=== PATIENT | male | born 1970 | race Caucasian/White ===

== ENCOUNTER → 2021-06-11 16:24 | Outpatient (CLI) | payer OTHER, SELFPAY ==
--- NOTE | 2021-06-11 | DI.RAD.S_ITS ---
PROCEDURE: XR CHEST 2V INDICATIONS: AFIB TECHNIQUE: 2 views of the chest were acquired. COMPARISON: None. FINDINGS: Surgical changes and devices: None. Lungs and pleura: No consolidation. Prominent pulmonary vasculature markings. No pleural effusions or pneumothorax. Mediastinum: Mediastinal contours are normal. Heart size is within normal limits. Bones and chest wall: No suspicious bony abnormalities. Soft tissues appear unremarkable. IMPRESSION: Question pulmonary vasculature engorgement. Dictated by: Trenton Gonzales M.D. on 06/11/2021 at 16:10 Approved by: Trenton Gonzales M.D. on 06/11/2021 at 16:11
== END ==
PROVIDERS: Referring Provider Student in an Organized Health Care Education/Training Program; Visit Provider Student in an Organized Health Care Education/Training Program
DX: I48.91 Unspecified atrial fibrillation (principal)
CPT/HCPCS: 71046

== ENCOUNTER → 2021-07-25 14:47 | Outpatient (CLI) | payer OTHER, SELFPAY ==
--- NOTE | 2021-07-25 14:50 | DI.ECHO.S_ITS ---
[facility] +---------+ : : [address] : [place] : : : : [id number] : : : : Phone: [phone]+ Echocardiogram Report + + :Name: LIEN ALVAREZ Study Date: 07/25/2021 Height: 71 in : :[facility] ReadingLocation: Weight: 312 lb : : Gender: Male BSA: 2.5 m2 : :: 1970 Age: 50 yrs BP: 144/92 mmHg: :Reason For Study: Atrial fibrillation : :Ordering Physician: ZACHARIAH, : :ARLETH Performed By: Justin Mandujano : :Referring: ARLETH SONI : + + Interpretation Summary There is mild concentric left ventricular hypertrophy. The ejection fraction is estimated to be 55-60%. Diastolic function could not be accurately assessed due to atrial fibrillation. The right ventricle is normal in size and function. Both atria are mildly dilated. No significant valvular abnormalities. Unable to estimate PASP. Procedure: A two-dimensional transthoracic echocardiogram with color flow and Doppler was performed. The study quality was technically adequate. There is no prior echocardiogram noted for this patient. A contrast injection of Definity was performed to improve assessment of LV function. Left Ventricle: The left ventricle is normal in size. There is mild concentric left ventricular hypertrophy. Left ventricular systolic function is normal. The ejection fraction is estimated to be 55-60%. There are no focal wall motion abnormalities. Diastolic function could not be accurately assessed due to atrial fibrillation. Right Ventricle: The right ventricle is normal in size and function. Atria: Both atria are mildly dilated. The interatrial septum grossly appears intact with no obvious evidence for an atrial septal defect. Mitral Valve: The mitral valve is normal in structure and function. There is no mitral regurgitation noted. Aortic Valve: The aortic valve opens well. There is no aortic valve stenosis. No aortic regurgitation is present. Tricuspid Valve: The tricuspid valve is normal. No tricuspid regurgitation. Pulmonary artery pressures cannot be estimated because of the lack of a measurable TR jet velocity. Pulmonic Valve: The pulmonic valve is not well seen, but is grossly normal. There is mild pulmonic regurgitation. Great Vessels: The aortic root is normal size. The dimensions of the ascending aorta are normal. The IVC is of normal diameter and collapses greater than 50% with a sniff. This suggests a low right atrial pressure of 3 mm Hg. Pericardium/ Pleura There is no pericardial effusion. There is no pleural effusion. MMode/2D Measurements & Calculations LVIDd: 5.1 cm LVOT diam: 2.6 cm LVIDs: 3.7 cm Ao root diam: 4.0 cm FS: 28.2 % asc Aorta Diam: 3.7 cm IVSd: 1.3 cm LVPWd: 1.2 cm LV cherry. diameter/BSA (cm/m^2): 2.0 LV sys. diameter/BSA (cm/m^2): 1.5 LA dimension: 3.5 cm RA long axis: 5.6 cm LA A2 area: 26.9 cm2 LA A4 area: 26.1 cm2 LA length (vol): 6.2 cm LA vol: 95.7 ml LA vol index: 37.5 ml/m2 LVLs ap4: 6.9 cm TAPSE_phl: 2.1 cm Doppler Measurements & Calculations Ao V2 max: 108.0 cm/sec LVOT Max Ludwin: 79.0 cm/sec Ao V2 mean: 81.3 cm/sec LV V1 max P.5 mmHg Ao max P.0 mmHg LV V1 VTI: 15.1 cm Ao mean P.0 mmHg FABY(I,D): 4.2 cm2 Ao V2 VTI: 18.9 cm FABY(V,D): 3.9 cm2 sev ratio: 0.80 FABY indexed to BSA (cm^2/m^2): 1.7 SV(LVOT): 80.2 ml AV VR_phl: 0.73 FABY(VTI)/BSA_phl: 1.7 Reading Physician:04:06 PM
== END ==
PROVIDERS: Referring Provider Student in an Organized Health Care Education/Training Program; Visit Provider Student in an Organized Health Care Education/Training Program
DX: I37.1 Nonrheumatic pulmonary valve insufficiency (principal); I48.91 Unspecified atrial fibrillation
CPT/HCPCS: 93306; Q9957

== ENCOUNTER → 2022-05-12 09:45 | Outpatient (ROUT) | payer OTHER, SELFPAY ==
[2022-05-12 10:30] LABS: COVID-19 CEPHEID 4-PLEX PCR Negative (Negative); Influenza A - CEPHEID Flu A NEGATIVE (NEGATIVE); Influenza B - CEPHEID Flu B NEGATIVE (NEGATIVE); Respiratory Syncytial Virus Negative (Negative)
== END ==
PROVIDERS: PCP Family Medicine; Visit Provider Internal Medicine
DX: Z20.822 Contact with and (suspected) exposure to COVID-19 (principal)
CPT/HCPCS: 0241U

== ENCOUNTER → 2022-05-20 14:24 | Outpatient (CLI) | payer OTHER, SELFPAY ==
--- NOTE | 2022-05-20 14:27 | DI.RAD.S_ITS ---
PROCEDURE: XR CHEST 2V INDICATIONS: SOB, COUGH, RECENT ABLATION TECHNIQUE: 2 views of the chest were acquired. COMPARISON: [facility], CR, XR CHEST 2V, 06/11/2021, 16:21. FINDINGS: Surgical changes and devices: None. Lungs and pleura: Lungs are clear. No pleural effusions or pneumothorax. Mediastinum: Mediastinal contours are normal. Heart size is normal. Bones and chest wall: No suspicious bony abnormalities. Soft tissues appear unremarkable. IMPRESSION: No acute cardiopulmonary disease process. Dictated by: Melissa Moore MD, PhD on 05/20/2022 at 15:05 Approved by: Melissa Moore MD, PhD on 05/20/2022 at 15:06
== END ==
PROVIDERS: PCP Registered Nurse; Referring Provider Registered Nurse; Visit Provider Registered Nurse
DX: R06.02 Shortness of breath (principal); R05.9 Cough, unspecified
CPT/HCPCS: 71046

== ENCOUNTER → 2022-11-28 15:04 | Outpatient (CLI) | payer OTHER, SELFPAY ==
--- NOTE | 2022-11-28 | DI.CT.S_ITS ---
PROCEDURE: CT KIDNEY URETER BLADDER (KUB) INDICATIONS: Lower abdominal pain, unspecified TECHNIQUE: Axial sections were acquired from the lung bases to the pubic symphysis. Coronal and sagittal reformats were performed. For radiation dose reduction, the following was used: automated exposure control, adjustment of mA and/or kV according to patient size. COMPARISON: None. FINDINGS: Image quality: Excellent. Lung bases: Unremarkable. Heart: No significant findings. URINARY: Right Kidney: There is mild right hydronephrosis and moderate right perinephric fat stranding. No nephrolithiasis. Right Ureter: The right ureter is mildly dilated throughout its course with periureteral fat stranding present. A 4 mm calculus is present at the right ureterovesicular junction (series 2/image 75). Left Kidney: No stones or hydronephrosis. Left Ureter: No hydroureter. Bladder: Normal wall thickness. No stones. ABDOMEN: Liver: Unremarkable. Gallbladder: Unremarkable. Biliary ducts: Unremarkable. Pancreas: Unremarkable. Spleen: Unremarkable. Adrenal Glands: Unremarkable. Stomach and Bowel: Stomach, small bowel loops, and colon are unremarkable. The appendix is thin walled and gas filled. Peritoneum: No abnormal intraperitoneal fluid. No free air. Ventral Wall: No hernia. Abdominal Nodes: No enlarged retroperitoneal or mesenteric lymph nodes. Vessels: Aorta and inferior vena cava are normal in size. PELVIS: Pelvic Organs: Unremarkable. Pelvic Nodes: Unremarkable. Miscellaneous: No inguinal hernias are seen. Bones: Unremarkable. IMPRESSION: 1. 4 mm calculus at the right ureterovesicular junction with mild right hydroureter, periureteral fat stranding, mild right hydronephrosis and moderate right perinephric fat stranding. 2. No other acute intra-abdominal findings. Normal appendix. Dictated by: Sharon Melendez M.D. on 11/28/2022 at 16:02 Approved by: Sharon Melendez M.D. on 11/28/2022 at 16:07
== END ==
PROVIDERS: PCP Registered Nurse; Referring Provider Registered Nurse; Visit Provider Registered Nurse
DX: N13.2 Hydronephrosis with renal and ureteral calculous obstruction (principal); R31.0 Gross hematuria; R10.30 Lower abdominal pain, unspecified
CPT/HCPCS: 74176

== ENCOUNTER → 2025-02-10 13:18 | Outpatient (CLI) | payer OTHER, SELFPAY ==
--- NOTE | 2025-02-10 | DI.RAD.S_ITS ---
PROCEDURE: XR SHOULDER RT MIN 2V INDICATIONS: routine TECHNIQUE: 3 views of the shoulder were acquired. COMPARISON: None. FINDINGS: Bones: No fractures or dislocations. No suspicious bony lesions. Visualized ribs appear intact. Moderate acromioclavicular joint degenerative change with possible erosive change at the acromioclavicular joint with mild distal clavicular osteolysis. The glenohumeral joint space is preserved. Soft tissues: No suspicious soft tissue calcifications. 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 Findings may be seen as a sequela of repetitive stress injury, prior trauma, or less likely inflammatory arthropathy. No displaced fracture or traumatic malalignment. Dictated by: Mary Rivera M.D. on 02/12/2025 at 13:36 Approved by: Mary Rivera M.D. on 02/12/2025 at 13:41
== END ==
LOC: RAD 13:19
PROVIDERS: PCP Registered Nurse; Referring Provider Registered Nurse; Visit Provider Registered Nurse
DX: M67.911 Unspecified disorder of synovium and tendon, right shoulder (principal)
CPT/HCPCS: 73030